=== PATIENT | female | born 1980 | race Caucasian/White ===

== ENCOUNTER 2017-01-20 16:45 | Inpatient (IN) | payer OTHER ==
--- NOTE | 2017-01-20 18:18 | ED CLINICAL REPORT ---
Clinical Report - Physicians/Mid Levels [facility] [address] [place] [address] 01/20/2017 16:47 Patient: KELLEY ERICKSON Time Seen: 16:52; upon arrival, initial patient contact, initial documentation, patient care assumed. Arrived- By private vehicle. Historian- patient. HISTORY OF PRESENT ILLNESS Chief Complaint: VAGINAL BLEEDING. This started about 9 days ago and still present. The symptoms are described as severe. Modifying factors. Not worsened by anything. Not relieved by anything. The patient has had intermittent, crampy pelvic pain, described as "pain", with vaginal bleeding. She has had abnormal bleeding described as heavier than normal period and passing clots. No abdominal pain, vaginal pain, low back pain, flank pain or vaginal discharge. No pain with urination, urinary frequency, urgency of urination or hematuria. In the past she has had irregular periods. They have been of normal duration and more frequent than normal and consisted of normal flow. Not sexually active. ([id number] had period about a month ago, and since then on and off bleeding, and this time it is still going). Denies current . Similar symptoms previously: Occasionally, milder. Recent medical care: Not recently seen/assessed. REVIEW OF SYSTEMS The patient has had nausea. She has had vomiting (none today after taking zofran). No diarrhea, fever, difficulty breathing or chest pain. All systems otherwise negative, except as recorded above. PAST HISTORY See nurses notes. ( PROBLEMS: Threatened . --16:54 Claudette Desai, R.N. ADDITIONAL SURGERIES: . --16:54 Claudette Desai, R.N.). SOCIAL HISTORY Never smoker. No alcohol use or drug use. No recent travel. Is a local resident. FAMILY HISTORY Negative. ADDITIONAL NOTES The nursing notes have been reviewed with agreement regarding the chief complaint, HPI, ROS, PMH and patient medications and allergies. PHYSICAL EXAM Vital Signs: 01/20/2017 16:53 BP: 114/66. HR: 110. RR: 18. O2 saturation: 100%. Temp: 98.6 F. Pain level now: 6/10. Have been reviewed as abnormal. Blood pressure normal. Tachycardic. Respiratory rate normal. Temperature normal. Oxygen saturation normal. Appearance: Alert. Oriented X3. No acute distress. HEENT: Normal external inspection. ENT: Pharynx normal. Neck: Neck supple. CVS: Tachycardia (ventricular rate = 112). Heart sounds abnormal. Respiratory: No respiratory distress. Breath sounds normal. Chest nontender. Abdomen: Soft and nontender. Bowel sounds normal. No organomegaly. No mass. Back: Normal external inspection. : External inspection normal. Speculum exam abnormal. Slight vaginal bleeding, consisting of bright red blood, via the cervical os. No vaginal bleeding from a cervical lesion or vaginal laceration. No vaginal discharge. Cervical os closed. No tissue present. No cervicitis. No herpes-like lesions. Bimanual exam normal. Skin: Skin warm and dry. Slight pallor. Abnormal skin color. No rash. Normal skin turgor. Extremities: Extremities nontender. No lower extremity edema. Neuro: Oriented X 3. Mood/affect normal. No motor deficit. No sensory deficit. LABS, X-RAYS, AND EKG Pelvic Sonogram: Normal study. . verbal report from [facility]. Interpretation time: 18:12. Laboratory Tests: Serum Qualitative: (DELIA: 01/20/2017 17:50) ( [employer] 01/20/2017 18:07) Final results Test Result Flag Units (Reference) , SERUM NEGATIVE CBC w Diff: (DELIA: 01/20/2017 17:50) ( [employer] 01/20/2017 18:04) Final results Test Result Flag Units (Reference) WHITE BLOOD COUNT 5.0 K/uL (4.5-11.5) RED BLOOD COUNT 1.98 L M/uL (4.00-5.20) HEMOGLOBIN 4.1 *L gm/dL (12.0-16.0) CRITICAL RESULTS CALLEDCalled to GLEN 01/20/17 1803Were 2 patient identifiers used? YWas the result read back? Y HEMATOCRIT 14.1 *L % (36.0-46.0) CRITICAL RESULTS CALLEDCalled to GLEN 01/20/17 1803Were 2 patient identifiers used? YWas the result read back? Y MEAN CELL VOLUME 71 L fL (80-100) MEAN CORPUSCULAR HGB 21 L pg (26-34) MEAN CORPUSCULAR HGB CONC 29 L g/dL (31-37) RED CELL DISTRIBUTION WIDTH 31.1 H % (11.6-14.8) PLATELET COUNT 64 L K/uL (150-400) NEUTROPHIL % 64.7 % (50-75) LYMPH % 25.7 % (25-40) MONO % 7.4 % (3-14) EOSINOPHIL % 0.7 % (0-4) BASOPHIL % 1.5 % (0-2) CMP: (DELIA: 01/20/2017 17:50) ( MsgRcvd 01/20/2017 18:18) Final results Test Result Flag Units (Reference) GLUCOSE 125 H mg/dL (70-110) BUN 9 mg/dL (7-18) CREATININE 0.5 L mg/dL (0.6-1.3) Estimated GFR >60 mL/min Estimated GFR- >60 mL/min Note: Persistent reduction over 3 months in eGFR<60 mL/min/1.73 m2 defines CKD. Patients with eGFR values>=60 mL/min/1.73 m2 may also have CKD if evidence ofpersistent proteinuria. Additional information may be foundat www.kidney.org. SODIUM 143 mmol/L (136-145) POTASSIUM 3.9 mmol/L (3.5-5.1) CHLORIDE 108 H mmol/L (98-107) CARBON DIOXIDE 26 mmol/L (21-32) CALCIUM 8.1 L mg/dL (8.5-10.1) TOTAL PROTEIN 6.3 L g/dL (6.4-8.2) ALBUMIN 2.9 L g/dL (3.3-5.0) BILIRUBIN, TOTAL 0.6 mg/dL (0.0-1.0) ALKALINE PHOSPHATASE 96 U/L (46-116) AST (SGOT) 119 H U/L (15-37) ALT (SGPT) 880 H U/L (12-78) Type & Cross: (DELIA: 01/20/2017 17:50) ( MsgRcvd 01/20/2017 19:02) IP Test Result Flag Units (Reference) LEUKOREDUCED PACKED CELLS [id number] BP PC XM COMPATIBLE [id number] BP PC XM COMPATIBLE PATIENT BLOOD TYPE B Positive ANTIBODY SCREEN NEGATIVE . PROGRESS AND PROCEDURES Course of Care: 19:05 01/20/17. Dr Alfaro to bedside. Discussed case with on-call health care provider, (call returned 18:18 Dr Alfaro). Reviewed test results. Agreed upon treatment plan and decision to admit. Health care provider will see patient in ED. Patient counseled in person regarding the patient's stable condition, test results, diagnosis and need for additional testing and admission. 18:12. Differential Diagnosis: I considered vaginitis, endometriosis, uterine fibroids, uterine hyperplasia, uterine cancer, intrauterine , incomplete , threatened , retained products of , endometritis and dysfunctional uterine bleeding as a possible cause of vaginal bleeding in this patient. This is a partial list of diagnoses considered. Above considerations are based on history, physical exam and laboratory data. Differential diagnosis was discussed with patient. Disposition: Condition: good and stable. CLINICAL IMPRESSION Severe dysfunctional uterine bleeding. (Electronically signed by Elvi Poe A.R.N.P. 01/20/2017 22:40)
--- NOTE | 2017-01-20 18:18 | ED CLINICAL REPORT ---
Clinical Report - Physicians/Mid Levels [facility] [address] [place] [address] 01/20/2017 16:47 Patient: KELLEY ERICKSON Time Seen: 16:52; upon arrival, initial patient contact, initial documentation, patient care assumed. Arrived- By private vehicle. Historian- patient. HISTORY OF PRESENT ILLNESS Chief Complaint: VAGINAL BLEEDING. This started about 9 days ago and still present. The symptoms are described as severe. Modifying factors. Not worsened by anything. Not relieved by anything. The patient has had intermittent, crampy pelvic pain, described as "pain", with vaginal bleeding. She has had abnormal bleeding described as heavier than normal period and passing clots. No abdominal pain, vaginal pain, low back pain, flank pain or vaginal discharge. No pain with urination, urinary frequency, urgency of urination or hematuria. In the past she has had irregular periods. They have been of normal duration and more frequent than normal and consisted of normal flow. Not sexually active. ([id number] had period about a month ago, and since then on and off bleeding, and this time it is still going). Denies current . Similar symptoms previously: Occasionally, milder. Recent medical care: Not recently seen/assessed. REVIEW OF SYSTEMS The patient has had nausea. She has had vomiting (none today after taking zofran). No diarrhea, fever, difficulty breathing or chest pain. All systems otherwise negative, except as recorded above. PAST HISTORY See nurses notes. ( PROBLEMS: Threatened . --16:54 Claudette Desai, R.N. ADDITIONAL SURGERIES: . --16:54 Claudette Desai, R.N.). SOCIAL HISTORY Never smoker. No alcohol use or drug use. No recent travel. Is a local resident. FAMILY HISTORY Negative. ADDITIONAL NOTES The nursing notes have been reviewed with agreement regarding the chief complaint, HPI, ROS, PMH and patient medications and allergies. PHYSICAL EXAM Vital Signs: 01/20/2017 16:53 BP: 114/66. HR: 110. RR: 18. O2 saturation: 100%. Temp: 98.6 F. Pain level now: 6/10. Have been reviewed as abnormal. Blood pressure normal. Tachycardic. Respiratory rate normal. Temperature normal. Oxygen saturation normal. Appearance: Alert. Oriented X3. No acute distress. HEENT: Normal external inspection. ENT: Pharynx normal. Neck: Neck supple. CVS: Tachycardia (ventricular rate = 112). Heart sounds abnormal. Respiratory: No respiratory distress. Breath sounds normal. Chest nontender. Abdomen: Soft and nontender. Bowel sounds normal. No organomegaly. No mass. Back: Normal external inspection. : External inspection normal. Speculum exam abnormal. Slight vaginal bleeding, consisting of bright red blood, via the cervical os. No vaginal bleeding from a cervical lesion or vaginal laceration. No vaginal discharge. Cervical os closed. No tissue present. No cervicitis. No herpes-like lesions. Bimanual exam normal. Skin: Skin warm and dry. Slight pallor. Abnormal skin color. No rash. Normal skin turgor. Extremities: Extremities nontender. No lower extremity edema. Neuro: Oriented X 3. Mood/affect normal. No motor deficit. No sensory deficit. LABS, X-RAYS, AND EKG Pelvic Sonogram: Normal study. . verbal report from [facility]. Interpretation time: 18:12. Laboratory Tests: Serum Qualitative: (DELIA: 01/20/2017 17:50) ( [employer] 01/20/2017 18:07) Final results Test Result Flag Units (Reference) , SERUM NEGATIVE CBC w Diff: (DELIA: 01/20/2017 17:50) ( [employer] 01/20/2017 18:04) Final results Test Result Flag Units (Reference) WHITE BLOOD COUNT 5.0 K/uL (4.5-11.5) RED BLOOD COUNT 1.98 L M/uL (4.00-5.20) HEMOGLOBIN 4.1 *L gm/dL (12.0-16.0) CRITICAL RESULTS CALLEDCalled to GLEN 01/20/17 1803Were 2 patient identifiers used? YWas the result read back? Y HEMATOCRIT 14.1 *L % (36.0-46.0) CRITICAL RESULTS CALLEDCalled to GLEN 01/20/17 1803Were 2 patient identifiers used? YWas the result read back? Y MEAN CELL VOLUME 71 L fL (80-100) MEAN CORPUSCULAR HGB 21 L pg (26-34) MEAN CORPUSCULAR HGB CONC 29 L g/dL (31-37) RED CELL DISTRIBUTION WIDTH 31.1 H % (11.6-14.8) PLATELET COUNT 64 L K/uL (150-400) NEUTROPHIL % 64.7 % (50-75) LYMPH % 25.7 % (25-40) MONO % 7.4 % (3-14) EOSINOPHIL % 0.7 % (0-4) BASOPHIL % 1.5 % (0-2) CMP: (DELIA: 01/20/2017 17:50) ( MsgRcvd 01/20/2017 18:18) Final results Test Result Flag Units (Reference) GLUCOSE 125 H mg/dL (70-110) BUN 9 mg/dL (7-18) CREATININE 0.5 L mg/dL (0.6-1.3) Estimated GFR >60 mL/min Estimated GFR- >60 mL/min Note: Persistent reduction over 3 months in eGFR<60 mL/min/1.73 m2 defines CKD. Patients with eGFR values>=60 mL/min/1.73 m2 may also have CKD if evidence ofpersistent proteinuria. Additional information may be foundat www.kidney.org. SODIUM 143 mmol/L (136-145) POTASSIUM 3.9 mmol/L (3.5-5.1) CHLORIDE 108 H mmol/L (98-107) CARBON DIOXIDE 26 mmol/L (21-32) CALCIUM 8.1 L mg/dL (8.5-10.1) TOTAL PROTEIN 6.3 L g/dL (6.4-8.2) ALBUMIN 2.9 L g/dL (3.3-5.0) BILIRUBIN, TOTAL 0.6 mg/dL (0.0-1.0) ALKALINE PHOSPHATASE 96 U/L (46-116) AST (SGOT) 119 H U/L (15-37) ALT (SGPT) 880 H U/L (12-78) Type & Cross: (DELIA: 01/20/2017 17:50) ( MsgRcvd 01/20/2017 19:02) IP Test Result Flag Units (Reference) LEUKOREDUCED PACKED CELLS [id number] BP PC XM COMPATIBLE [id number] BP PC XM COMPATIBLE PATIENT BLOOD TYPE B Positive ANTIBODY SCREEN NEGATIVE . PROGRESS AND PROCEDURES Course of Care: 19:05 01/20/17. Dr Alfaro to bedside. Discussed case with on-call health care provider, (call returned 18:18 Dr Alfaro). Reviewed test results. Agreed upon treatment plan and decision to admit. Health care provider will see patient in ED. Patient counseled in person regarding the patient's stable condition, test results, diagnosis and need for additional testing and admission. 18:12. Differential Diagnosis: I considered vaginitis, endometriosis, uterine fibroids, uterine hyperplasia, uterine cancer, intrauterine , incomplete , threatened , retained products of , endometritis and dysfunctional uterine bleeding as a possible cause of vaginal bleeding in this patient. This is a partial list of diagnoses considered. Above considerations are based on history, physical exam and laboratory data. Differential diagnosis was discussed with patient. Disposition: Condition: good and stable. CLINICAL IMPRESSION Severe dysfunctional uterine bleeding. (Electronically signed by Elvi Poe A.R.N.P. 01/20/2017 22:40)
--- NOTE | 2017-01-20 18:18 | ED ORDER SUMMARY ---
..... Patient: KELLEY ERICKSON OrderSheet [facility] VisitID: [id number] [place] [address] 36y, F Registration Date/Time: 01/20/2017 ORDER SHEET Weight: 83.9 kg (stated) Allergies: No Known Drug Allergy GENERAL ORDERS: Vitals - Orthostatic (17:01/20/2017 HBivens A.R.N.P.) (Ack 17:35 LNations ER Tech1) (19:08 SRoberts R.N.) CBC w Diff Urgent (17:01/20/2017 HBivens A.R.N.P.) (Ack 17:35 LNations ER Tech1) (19:08 SRoberts R.N.) CMP Urgent (17:01/20/2017 HBivens A.R.N.P.) (Ack 17:35 LNations ER Tech1) (19:08 SRoberts R.N.) UA-Culture if indicated Urgent (17:01/20/2017 HBivens A.R.N.P.) (Ack 17:35 LNations ER Tech1) (Cancelled: Unable to Vtozxmk14:34 SRoberts R.N.) Serum Qualitative Urgent (17:25 01/20/2017 HBivens A.R.N.P.) (Ack 17:35 LNations ER Tech1) (19:08 SRoberts R.N.) Pelvic Exam Setup (17:25 01/20/2017 HBivens A.R.N.P.) (Ack 17:35 LNations ER Tech1) (19:08 SRoberts R.N.) US Pelvic Complete w Transvag Urgent (17:39 01/20/2017 HBivens A.R.N.P.) (Ack 17:55 LNations ER Tech1) (19:08 SRoberts R.N.) Type & Cross (vag bleed) (low h&h) Urgent (18:09 01/20/2017 HBivens A.R.N.P.) (Ack 18:18 ALFONZOoejanny) (19:08 SRoberts R.N.) MEDICATION ORDERS: - (premarin 25mg iv stat please) (18:22 01/20/2017 HBivens A.R.N.P.) (Ack 18:33 Pat Balderas) (19:13 Roland Velazquez.NBartolo) IV FLUIDS: IV NS : initial bolus 1000 mL (1000 mL/hr), then none - (NOW) (17:25 01/20/2017 HBivens A.R.N.P.) (Ack 18:32 Pat Balderas) (19:09 Roland DillonNBartolo) IV Saline Lock (17:01/20/2017 HBivens A.R.N.P.) (Ack 18:33 Pat Balderas) (19:08 Roland Velazquez.N.) ORDER SHEET NOTES: [Electronically signed by Payton Ch R.N. (21:38 01/20/2017)] [Electronically signed by Elvi PoeNBartoloPBartolo (22:40 01/20/2017)] [Electronically locked/signed by Payton Ch R.N. (21:38 01/20/2017)]
--- NOTE | 2017-01-20 18:18 | ED ORDER SUMMARY ---
..... Patient: KELLEY ERICKSON OrderSheet [facility] VisitID: [id number] [place] [address] 36y, F Registration Date/Time: 01/20/2017 ORDER SHEET Weight: 83.9 kg (stated) Allergies: No Known Drug Allergy GENERAL ORDERS: Vitals - Orthostatic (17:01/20/2017 HBivens A.R.N.P.) (Ack 17:35 LNations ER Tech1) (19:08 SRoberts R.N.) CBC w Diff Urgent (17:01/20/2017 HBivens A.R.N.P.) (Ack 17:35 LNations ER Tech1) (19:08 SRoberts R.N.) CMP Urgent (17:01/20/2017 HBivens A.R.N.P.) (Ack 17:35 LNations ER Tech1) (19:08 SRoberts R.N.) UA-Culture if indicated Urgent (17:01/20/2017 HBivens A.R.N.P.) (Ack 17:35 LNations ER Tech1) (Cancelled: Unable to Dpoatzq09:34 SRoberts R.N.) Serum Qualitative Urgent (17:25 01/20/2017 HBivens A.R.N.P.) (Ack 17:35 LNations ER Tech1) (19:08 SRoberts R.N.) Pelvic Exam Setup (17:25 01/20/2017 HBivens A.R.N.P.) (Ack 17:35 LNations ER Tech1) (19:08 SRoberts R.N.) US Pelvic Complete w Transvag Urgent (17:39 01/20/2017 HBivens A.R.N.P.) (Ack 17:55 LNations ER Tech1) (19:08 SRoberts R.N.) Type & Cross (vag bleed) (low h&h) Urgent (18:09 01/20/2017 HBivens A.R.N.P.) (Ack 18:18 ALFONZOoejanny) (19:08 SRoberts R.N.) MEDICATION ORDERS: - (premarin 25mg iv stat please) (18:22 01/20/2017 HBivens A.R.N.P.) (Ack 18:33 Pat Balderas) (19:13 Roland Velazquez.NBartolo) IV FLUIDS: IV NS : initial bolus 1000 mL (1000 mL/hr), then none - (NOW) (17:25 01/20/2017 HBivens A.R.N.P.) (Ack 18:32 Pat Balderas) (19:09 Roland DillonNBartolo) IV Saline Lock (17:01/20/2017 HBivens A.R.N.P.) (Ack 18:33 Pat Balderas) (19:08 Roland Velazquez.N.) ORDER SHEET NOTES: [Electronically signed by Payton Ch R.N. (21:38 01/20/2017)] [Electronically signed by Elvi PoeNBartoloPBartolo (22:40 01/20/2017)] [Electronically locked/signed by Payton Ch R.N. (21:38 01/20/2017)]
--- NOTE | 2017-01-20 18:18 | ED NURSING NOTES ---
Clinical Report - Nurses [facility] [address] [place] [address] 01/20/2017 16:47 [id number] TRI[facility] Triage time 16:53. Acuity: LEVEL 3. Chief Complaint: VAGINAL BLEED. Alert. No acute distress. [place] COMA SCORE: [place] Coma Scale: 15- eyes open spontaneously (4); best verbal response- oriented x 4 (5); best motor response- obeys commands (6). --16:58 Claudette Desai R.N. 16:53 01/20/17. BP: 114/66. HR: 110. RR: 18. O2 saturation: 100% on room air. Temp: 98.6 F (oral). Pain level now: 05/01. --16:58 Claudette Desai R.N. Weight: 83.9 kg stated. Height/Length: 65 inches Per Patient. BMI: 30.8. --16:54 Claudette Desai R.N. Medications None. --16:54 Claudette Desai R.N. Medication/allergy information source: the patient. --16:58 Claudette Desai R.N. Allergies No Known Drug Allergy. --16:54 Claudette Desai R.N. History Arrived by private vehicle. Historian: patient. Accompanied by family. Primary physician ([facility]). Onset. (about 9 days). PAST MEDICAL HX: Last normal menstrual period- Dec 2016. SOCIAL HX: Smoker- current status unknown (no). No alcohol use or drug use. FALL RISK ASSESSMENT: Fall risk assessment completed. No fall risk identified. FUNCTIONAL ASSESSMENT: Functional assessment: no impairments noted. LEARNING NEEDS ASSESSMENT: The learning needs assessment revealed no barriers. --16:58 Claudette Desai R.N. PROBLEMS: Threatened . --16:54 Claudette Desai R.N. ADDITIONAL SURGERIES: . --16:54 Claudette Desai R.N. Assessment GENERAL / NEURO / PSYCH: Alert. Oriented X 4. Appears in no acute distress. Patient appears calm and cooperative. RESPIRATORY: Respirations not labored. SKIN: Skin is warm and dry. --16:58 Claudette Desai R.N. Interventions ID band on patient. To treatment room. --16:58 Claudette Desai R.N. PHYSICAL ASSESSMENT 17:00 01/20/17. Ambulatory to room. Patient gowned. GENERAL / NEURO / PSYCH: Alert. Oriented X 4. Appears in no acute distress. RESPIRATORY: Respirations not labored. SKIN: Skin is pale. Skin is warm and dry. --17:00 Claudette Desai R.N. NURSING PROGRESS NOTES 17:00 01/20/17. Patient gowned. Head of bed elevated. Call light placed in reach. Side rails up x 1. Bed placed in lowest position. Brakes of bed on. --17:00 Claudette Desai R.N. 17:00 01/20/17. Patient ready for evaluation. --17:00 Claudette Desai R.N. Care transferred and report received (Mary, RN). --17:20 Payton Ch R.N. ( OB cart setup in the room.). --17:20 Payton Ch R.N. 17:30. PELVIC EXAM: Pelvic exam performed by INTERMEDIATE ACCOUNTANT. Assisted by one nurse. Preparation: pelvic tray; patient placed in lithotomy position. Procedure: speculum exam. Thin vaginal discharge noted. Bright red vaginal bleeding noted. Status post-procedure: she was stable. Total time of assist / procedure: 15 minutes. --19:05 Payton Ch R.N. 18:07 01/20/2017 Site #1 started via IV in the right antecubital space with an 20g angiocath, with aseptic technique and good blood return; one attempt. Blood drawn: rainbow set. Labeled in the presence of the patient and sent to the lab. Saline lock flushed with 10 mL saline (blood banded.). --19:07 Payton Ch R.N. 18:54 01/20/2017 Started bag #1 1000 mL IV Fluids IV NS (Saline); at 1000 mL/hr over 1 hour(s) via site #1 via IV pump. Allergies verified and confirmed 5 rights. IV patency established. IV site checked: no pain, redness, or swelling. IV flushed thoroughly pre- and post-medication administration. --19:09 Payton Ch R.N. 19:12 01/20/2017 premarin * IVP 25mg --19:13 Payton Ch R.N. 19:34 01/20/17. BP: 106/59 taken while standing. HR: 110. 19:32 01/20/17. BP: 105/57 taken while sitting. HR: 105. RR: 20. O2 saturation: 98% on room air. 19:26 01/20/17. BP: 110/60 taken while lying. HR: 100. RR: 18. O2 saturation: 100% on room air. --19:52 Payton Ch R.N. 20:04 01/20/2017 IV Fluids IV NS Discontinued: bag #1 infused. Total amount infused: 1000 mL. IV patency established. IV site checked: no pain, redness, or swelling. IV flushed thoroughly. --20:04 Payton Ch R.N. 20:20 01/20/2017 Site #[address] upon admission; patent, no pain and no signs of infection or infiltration. Flushed; flushes easily. --21:33 Payton Ch R.N. DISPOSITION / DISCHARGE Disposition: observation in Acute Care. Transported via stretcher by [employer]. Report was given to a nurse in person. Report included patient's care, treatment, medications, reviewed medication reconcilliation, and condition (including any recent changes or anticipated changes). All questions were answered. Report was acknowledged and care was transferred. (Bridgette, RN). Patient's personal items include: shirt, pants, undergarments and shoes; items were placed in belongings bag and transported with the patient. Collection of belongings was witnessed by 1 nurse. --20:07 Payton Ch R.N. 19:34 01/20/17. BP: 107/65. HR: 100. RR: 18. O2 saturation: 100% on room air. 19:34 01/20/17. BP: 106/59 taken while standing. HR: 110. 19:32 01/20/17. BP: 105/57 taken while sitting. HR: 105. RR: 20. O2 saturation: 98% on room air. 19:26 01/20/17. BP: 110/60 taken while lying. HR: 100. RR: 18. O2 saturation: 100% on room air. 18:15 01/20/17. BP: 106/55. HR: 103. RR: 18. O2 saturation: 99% on room air. 16:53 01/20/17. BP: 114/66. HR: 110. RR: 18. O2 saturation: 100% on room air. Temp: 98.6 F (oral). Pain level now: 05/01. --20:07 Payton Ch R.N. Departure time: 2019. --21:32 Payton Ch R.N. Locked/Released at 01/20/2017 21:38 by Payton Ch R.N.
--- NOTE | 2017-01-20 18:18 | ED NURSING NOTES ---
Clinical Report - Nurses [facility] [address] [place] [address] 01/20/2017 16:47 [id number] Triage time 16:53. Acuity: LEVEL 3. Chief Complaint: VAGINAL BLEED. Alert. No acute distress. CAM[place] COMA SCORE: [place] Coma Scale: 15- eyes open spontaneously (4); best verbal response- oriented x 4 (5); best motor response- obeys commands (6). --16:58 Claudette Desai R.N. 16:53 01/20/17. BP: 114/66. HR: 110. RR: 18. O2 saturation: 100% on room air. Temp: 98.6 F (oral). Pain level now: 05/01. --16:58 Claudette Desai R.N. Weight: 83.9 kg stated. Height/Length: 65 inches Per Patient. BMI: 30.8. --16:54 Claudette Desai R.N. Medications None. --16:54 Claudette Desai R.N. Medication/allergy information source: the patient. --16:58 Claudette Desai R.N. Allergies No Known Drug Allergy. --16:54 Claudette Desai R.N. History Arrived by private vehicle. Historian: patient. Accompanied by family. Primary physician ([facility]). Onset. (about 9 days). PAST MEDICAL HX: Last normal menstrual period- Dec 2016. SOCIAL HX: Smoker- current status unknown (no). No alcohol use or drug use. FALL RISK ASSESSMENT: Fall risk assessment completed. No fall risk identified. FUNCTIONAL ASSESSMENT: Functional assessment: no impairments noted. LEARNING NEEDS ASSESSMENT: The learning needs assessment revealed no barriers. --16:58 Claudette Desai R.N. PROBLEMS: Threatened . --16:54 Claudette Desai R.N. ADDITIONAL SURGERIES: . --16:54 Claudette Desai R.N. Assessment GENERAL / NEURO / PSYCH: Alert. Oriented X 4. Appears in no acute distress. Patient appears calm and cooperative. RESPIRATORY: Respirations not labored. SKIN: Skin is warm and dry. --16:58 Claudette Desai R.N. Interventions ID band on patient. To treatment room. --16:58 Claudette Desai R.N. PHYSICAL ASSESSMENT 17:00 01/20/17. Ambulatory to room. Patient gowned. GENERAL / NEURO / PSYCH: Alert. Oriented X 4. Appears in no acute distress. RESPIRATORY: Respirations not labored. SKIN: Skin is pale. Skin is warm and dry. --17:00 Claudette Desai R.N. NURSING PROGRESS NOTES 17:00 01/20/17. Patient gowned. Head of bed elevated. Call light placed in reach. Side rails up x 1. Bed placed in lowest position. Brakes of bed on. --17:00 Claudette Desai R.N. 17:00 01/20/17. Patient ready for evaluation. --17:00 Claudette Desai R.N. Care transferred and report received (Mary, RN). --17:20 Payton Ch R.N. ( OB cart setup in the room.). --17:20 Payton Ch R.N. 17:30. PELVIC EXAM: Pelvic exam performed by MEDICAL RESEARCH ASSOCIATE. Assisted by one nurse. Preparation: pelvic tray; patient placed in lithotomy position. Procedure: speculum exam. Thin vaginal discharge noted. Bright red vaginal bleeding noted. Status post-procedure: she was stable. Total time of assist / procedure: 15 minutes. --19:05 Payton Ch R.N. 18:07 01/20/2017 Site #1 started via IV in the right antecubital space with an 20g angiocath, with aseptic technique and good blood return; one attempt. Blood drawn: rainbow set. Labeled in the presence of the patient and sent to the lab. Saline lock flushed with 10 mL saline (blood banded.). --19:07 Payton Ch R.N. 18:54 01/20/2017 Started bag #1 1000 mL IV Fluids IV NS (Saline); at 1000 mL/hr over 1 hour(s) via site #1 via IV pump. Allergies verified and confirmed 5 rights. IV patency established. IV site checked: no pain, redness, or swelling. IV flushed thoroughly pre- and post-medication administration. --19:09 Payton Ch R.N. 19:12 01/20/2017 premarin * IVP 25mg --19:13 Payton Ch R.N. 19:34 01/20/17. BP: 106/59 taken while standing. HR: 110. 19:32 01/20/17. BP: 105/57 taken while sitting. HR: 105. RR: 20. O2 saturation: 98% on room air. 19:26 01/20/17. BP: 110/60 taken while lying. HR: 100. RR: 18. O2 saturation: 100% on room air. --19:52 Payton Ch R.N. 20:04 01/20/2017 IV Fluids IV NS Discontinued: bag #1 infused. Total amount infused: 1000 mL. IV patency established. IV site checked: no pain, redness, or swelling. IV flushed thoroughly. --20:04 Payton Ch R.N. 20:20 01/20/2017 Site #[address] upon admission; patent, no pain and no signs of infection or infiltration. Flushed; flushes easily. --21:33 Payton Ch R.N. DISPOSITION / DISCHARGE Disposition: observation in Acute Care. Transported via stretcher by [facility] [employer]. Report was given to a nurse in person. Report included patient's care, treatment, medications, reviewed medication reconcilliation, and condition (including any recent changes or anticipated changes). All questions were answered. Report was acknowledged and care was transferred. (Bridgette, RN). Patient's personal items include: shirt, pants, undergarments and shoes; items were placed in belongings bag and transported with the patient. Collection of belongings was witnessed by 1 nurse. --20:07 Payton Ch R.N. 19:34 01/20/17. BP: 107/65. HR: 100. RR: 18. O2 saturation: 100% on room air. 19:34 01/20/17. BP: 106/59 taken while standing. HR: 110. 19:32 01/20/17. BP: 105/57 taken while sitting. HR: 105. RR: 20. O2 saturation: 98% on room air. 19:26 01/20/17. BP: 110/60 taken while lying. HR: 100. RR: 18. O2 saturation: 100% on room air. 18:15 01/20/17. BP: 106/55. HR: 103. RR: 18. O2 saturation: 99% on room air. 16:53 01/20/17. BP: 114/66. HR: 110. RR: 18. O2 saturation: 100% on room air. Temp: 98.6 F (oral). Pain level now: 05/01. --20:07 Payton Ch R.N. Departure time: 2019. --21:32 Payton Ch R.N. Locked/Released at 01/20/2017 21:38 by Payton Ch R.N.
[2017-01-20 20:47] VITALS: BP 106/63
--- NOTE | 2017-01-20 22:03 | DIAGNOSTIC IMAGING REPORT ---
PROCEDURE: US COMPLETE PELVIC W/TRANSVAG INDICATION: ABNORMAL BLEEDING TECHNIQUE: Transabdominal and endovaginal oneill scale and color Doppler sonographic images of the female pelvis were obtained. COMPARISON: None. FINDINGS: TRANSABDOMINAL SCANS: Retroverted uterus measures about 10.2 cm in length. Normal contour and echotexture. Normal adnexa without suspicious mass. The visible portion of the urinary bladder is normal. No significant free pelvic fluid. TRANSVAGINAL SCANS: The uterus is retroverted in position and has a homogeneous myometrial echotexture. No dominant mass. Normal vascularity. The endometrium is about 6 mm in thickness. No endometrial fluid collections or suspicious masses. The right ovary measures 2.7 x 1.3 x 3.0 cm and has a normal follicular echotexture. There is normal arterial and venous ovarian flow present. The left ovary measures 3.5 x 2.0 x 3.2 cm and also has a normal follicular echotexture and normal vascularity. No suspicious adnexal masses. Trace right adnexal fluid. IMPRESSION: 1. Normal pelvic ultrasound.
--- NOTE | 2017-01-20 22:40 | ED DISCHARGE INSTRUCTIONS ---
Patient: KELLEY ERICKSON General Instructions [facility] VisitID: [id number] [address] [place] [address] 36y, F Registration Date/Time: 01/20/2017 Severe dysfunctional uterine bleeding. (Electronically signed by Elvi Poe A.R.N.P. 01/20/2017 22:40)
--- NOTE | 2017-01-20 22:40 | ED DISCHARGE INSTRUCTIONS ---
Patient: KELLEY ERICKSON General Instructions [facility] VisitID: [id number] [address] [place] [address] 36y, F Registration Date/Time: 01/20/2017 Severe dysfunctional uterine bleeding. (Electronically signed by Elvi Poe A.R.N.P. 01/20/2017 22:40)
--- NOTE | 2017-01-20 22:40 | ED MED RECONCILIATION SUMMARY ---
Patient: KELLEY ERICKSON Medication Reconciliation Report [facility] VisitID: [id number] [address] [place] [address] 36y, F Registration Date/Time: 01/20/2017 Weight: 83.9 kg Height/Length: 65 in. BMI: 30.8 ALLERGIES: No Known Drug Allergy The patient's Home Medications are listed below: NONE. The source(s) of the original Home Medication information: patient The following Medications were given to the patient in the Emergency Department: IV NS IV Fluids bolus 0, then 1000 mL/hr, administered: 01/20/2017 6:54:00 PM premarin IVP 25mg, administered: 01/20/2017 7:12:00 PM The following Medications were prescribed to the patient: None.
--- NOTE | 2017-01-20 22:40 | ED MAR SUMMARY ---
..... Medication Administration Record [facility] [address] [place] [address] Patient: KELLEY ERICKSON Visit ID: [id number] 36y, F Weight: 83.9 kg Height/Length: 65 in BMI: 30.8 ALLERGIES: No Known Drug Allergy Start 18:54 01/20/2017 Payton Ch R.N., Stop 20:04 01/20/2017 Payton Ch R.N. Medication Administered: IV NS (SALINE), Dose: IV Fluids over 1 hour(s), Rate: 1000 mL/hr, Dispensed: 1000 mL bag, Site: #1 right AC. Medication Ordered: IV NS : initial bolus 1000 mL (1000 mL/hr), then none - (NOW). Given 19:12 01/20/2017 Payton Ch R.N. Medication Administered: premarin *, Dose: 25mg * IVP. Medication Ordered: - (premarin 25mg iv stat please).
--- NOTE | 2017-01-20 22:40 | ED MED RECONCILIATION SUMMARY ---
Patient: KELLEY ERICKSON Medication Reconciliation Report [facility] VisitID: [id number] [address] [place] [address] 36y, F Registration Date/Time: 01/20/2017 Weight: 83.9 kg Height/Length: 65 in. BMI: 30.8 ALLERGIES: No Known Drug Allergy The patient's Home Medications are listed below: NONE. The source(s) of the original Home Medication information: patient The following Medications were given to the patient in the Emergency Department: IV NS IV Fluids bolus 0, then 1000 mL/hr, administered: 01/20/2017 6:54:00 PM premarin IVP 25mg, administered: 01/20/2017 7:12:00 PM The following Medications were prescribed to the patient: None.
--- NOTE | 2017-01-20 22:40 | ED MAR SUMMARY ---
..... Medication Administration Record [facility] [address] [place] [address] Patient: KELLEY ERICKSON Visit ID: [id number] 36y, F Weight: 83.9 kg Height/Length: 65 in BMI: 30.8 ALLERGIES: No Known Drug Allergy Start 18:54 01/20/2017 Payton Ch R.N., Stop 20:04 01/20/2017 Payton Ch R.N. Medication Administered: IV NS (SALINE), Dose: IV Fluids over 1 hour(s), Rate: 1000 mL/hr, Dispensed: 1000 mL bag, Site: #1 right AC. Medication Ordered: IV NS : initial bolus 1000 mL (1000 mL/hr), then none - (NOW). Given 19:12 01/20/2017 Payton Ch R.N. Medication Administered: premarin *, Dose: 25mg * IVP. Medication Ordered: - (premarin 25mg iv stat please).
[2017-01-20 22:45] VITALS: BP 103/57
[2017-01-20 23:00] VITALS: BP 103/57
[2017-01-20 23:13] VITALS: BP 100/58
[2017-01-20 23:36] VITALS: BP 100/53
[2017-01-20 23:50] VITALS: BP 100/53
[2017-01-21] VITALS (26 sets, daily range): BP systolic 95–121; BP diastolic 46–65
--- NOTE | 2017-01-21 20:41 | HISTORY AND PHYSICAL ---
ADMITTED: 01/20/2017 CHIEF COMPLAINT: 1. Heavy vaginal bleeding with menses HISTORY OF PRESENT ILLNESS: The patient is a 36-year-old 6, para 6, delivered 15 months ago, has had 5-10 day periods, increasing with clots over the last year. The patient has had severe bleeding over the last several days and comes in now with dizziness and has a hemoglobin, hematocrit of 4.1 and 14.1 from the emergency department. MEDICAL/SURGICAL HISTORY: Past medical history: Normal periods, but heavy. Surgical history: section. Medical history not significant. OB history: Six pregnancies, deliveries. MEDICATIONS: 1. None. ALLERGIES: 1. NONE. SOCIAL HISTORY: History of smoking. No alcohol or drug use. FAMILY HISTORY: Noncontributory. REVIEW OF SYSTEMS: General/Neurological/Psychological history: Alert and oriented x3. PHYSICAL EXAMINATION: VITAL SIGNS: Stable. Blood pressure 114/66, pulse 110, 100% saturated on room air O2. Vital signs stable, otherwise. Weight, per patient, 84 kg with a BMI of 31. HEENT: Grossly intact. HEART: Tachycardia at 110. ABDOMEN: Benign. MUSCULOSKELETAL: Normal. EXTREMITIES: Normal. PELVIC: Per emergency department visit, bright red blood per os, clots. LAB/IMAGING: Laboratories: Hematocrit is noted 4, 14 for hemoglobin and hematocrit. Chem-6: Abnormalities noted. SGOT and SGPT are significantly elevated 119 and 888. Other electrolytes essentially normal. IMPRESSION: 1. A 36 year old with severe menorrhagia and tachycardic with a hemoglobin, hematocrit of 4.1/14.1. PLAN: Multiple options given to patient. Overnight we will transfuse. Give Premarin IV q.6-12 hours p.r.n., 2 doses to be given, progesterone p.o. and transfuse to hematocrit of approximately 24, suspect 5 units needed. We will observe her overnight and offer options again in the morning. The following is the plan. This course of plan we have been following.
--- NOTE | 2017-01-21 21:26 | Consultation Report ---
Admission Admit Date 01/20/17 History Chief Complaint heavy periods History of Present Illness Patient is a 36-year-old 6, para 6, delivered 15 months ago, has had 5- 10 day periods, increasing with clots over the last year. The patient has had severe bleeding over the last several days which she claims is relatively normal for after her last . Patient had not seen any medical professional about these heavy periods since they were self limiting. Raynaeve patient has been noticing that she has been haivng very heacy periods after the . Patient regularly sees doctors however it is unclear to as whether she has had been prescribed medication in the past for this or has been officially diagnosed with anything. Patient History 1. Severe anemia 2. Thrombocytopenia Social History Patient currently has 3 children and does not work. She does not drink, use alcohol or illegal drugs Family History Family history was reviewed; no changes noted. Medications and Allergies Medications Home Meds None Current Medications Sig/Patience Start time Last Medication Dose Route Stop Time Status Admin Influenza Virus 0.5 ML 0900 01/22 0900 AC Vaccine IM 01/22 1800 Sodium Chloride 250 ML .[FOR TRANSFUSION] 01/21 2130 AC IV Sodium Chloride 250 ML .[FOR TRANSFUSION] 01/21 2130 AC IV Sodium Chloride 250 ML .TRANSFUSION 01/21 1400 AC IV Estrogens Conjugated 25 MG Q6H PRN 01/21 0815 AC 01/21 IV 1234 Ondansetron HCl 4 MG Q4H PRN 01/20 1900 AC IV Sodium Chloride 1,000 ML ASDIRECTED 01/20 1900 AC 01/20 IV 2120 Allergies Coded Allergies: No Known Drug Allergy (07/08/16) Review of Systems Constitutional Weakness, Malaise. Denies: Fever, Chills, Sweats, Other. Eyes Denies: Pain, Vision Change, Conjunctival Inflammation, Eyelid Inflammation, Redness, Other. ENT Denies: Ear Pain, Ear Discharge, Nose Pain, Nasal Discharge, Nasal Congestion, Mouth Pain, Mouth Swelling, Throat Pain, Throat Swelling, Other. Respiratory Denies: Cough, Dry, SOB w/exertion, Wheezing, Hemoptysis, Pleuritic Pain, Sputum , Other. Cardiovascular Denies: Chest Pain, Palpitations, Orthopnea, PND, Edema, Light-headedness, Other. Gastrointestinal Denies: Nausea, Vomiting, Abdominal Pain, Diarrhea, Constipation, Melena, Hematochezia, Other. Genitourinary Other (heavy periods ). Denies: Dysuria, Frequency, Incontinence, Hematuria, Retention. Musculoskeletal Denies: Neck Pain, Shoulder Pain, Arm Pain, Back Pain, Hand Pain, Leg Pain, Foot Pain, Other. Skin Denies: Rash, Lesions, Jaundice, Bruising, Other. Neurological Denies: Weakness, Numbness, Incoordination, Change in speech, Confusion, Seizures, Other. Physical Exam Vital Signs / I&Os Vital Signs Date Time Temp Pulse Resp B/P Pulse O2 O2 Flow FiO2 Ox Delivery Rate 01/22 0501 98.4 79 14 101/55 98 Room Air 03/03 0313 98.4 86 16 102/54 97 Room Air 03/ 0240 98.2 88 14 102/56 98 Room Air 03/ 0140 98.2 86 16 99/59 96 Room Air 03/03 0112 98.2 86 16 99/59 96 03/03 0009 98.2 74 16 98/59 99 03/02 2253 98.2 89 16 101/59 98 03/02 1950 Room Air 03/02 1939 98.4 95 18 112/63 98 Room Air 03/02 1900 98.4 97 19 110/58 96 03/02 1800 98.2 99 20 111/57 98 03/02 1700 98.1 94 20 105/57 96 03/02 1644 98.1 92 18 100/61 95 03/02 1607 0.0 03/02 1435 98.4 89 18 105/61 96 Room Air 03/02 1158 99.1 92 18 113/55 92 03/02 1048 98.8 91 20 112/65 96 03/02 0937 95 20 107/61 94 03/02 0922 99.0 91 20 110/54 93 03/02 0807 Room Air 03/02 0750 99.1 89 20 107/58 97 I&O 03/02 0800 03/02 1600 03/03 0000 Intake Total 1905 1060 1270 Output Total 250 850 550 Balance 1655 210 720 General Appearance Alert, Oriented X3, No acute distress HEENT PERRLA, Moist mucous membranes Lungs Clear to auscultation, Normal air movement Neck Supple, No JVD, No thyromegaly Cardiovascular Regular rate and rhythm, Normal S1 and S2, No murmurs, gallops, rubs Abdomen Normal bowel sounds, Soft, No tenderness Extremities No edema, Normal pulses, No tenderness Skin No Breakdown, No Significant Lesions LAB Results Laboratory Tests 01/21 01/21 01/21 01/21 1205 2019 2020 2020 Chemistry Iron (35 - 150 ug/dL) 178 TIBC (260 - 445 ug/dL) 427 Iron Saturation (15 - 50 %) 42 Vitamin B12 (211 - 946 pg/mL) 1454 Folate (>3.0 ng/mL) 4.5 Coagulation INR (0.8 - 1.2) 1.1 APTT (24 - 34 SECONDS) Cancelled 34 Hematology WBC (4.5 - 11.5 K/uL) 9.2 RBC (4.00 - 5.20 M/uL) 2.91 Hgb (12.0 - 16.0 gm/dL) 6.5 7.1 Hct (36.0 - 46.0 %) 20.9 22.2 MCV (80 - 100 fL) 77 MCH (26 - 34 pg) 24 RDW (11.6 - 14.8 %) 24.2 Neut % (Auto) (50 - 75 %) 67.2 Lymph % (Auto) (25 - 40 %) 22.7 [place] % (Auto) (3 - 14 %) 6.8 Eos % (Auto) (0 - 4 %) 2.2 Baso % (Auto) (0 - 2 %) 1.1 Reticulocyte % (Auto) (0.5 - 1.5 %) 1.0 Reticulocyte # (0.02 - 0.08 M/uL) 0.0286 Plt Count, EDTA (150 - 400 K/uL) 33 RBC Morphology (3919 A) 1+ HYPOCHROMASIA PUBS MCHC (31 - 37 g/dL) 32 Serology Hepatitis A IgM Ab Pending Hep Bs Antigen Pending Hep B Core IgM Ab Pending Hepatitis C Antibody Pending 01/22 01/22 0613 0613 Hematology Hgb Pending Hct Pending Plt Count, EDTA Pending Assessment and Plan Problem List 1. Severe anemia Plan - Pt has severe anemia secondary to heavy menstruation - will supplement with blood and control bleeding as best as possible - will recommend obtaining, peripheral smear, iron profile after transfusions are complete, hepatitis profile, - will recommend starting iron supplmentation given she has been iron defiecient before however due to frequent transfusions current values are skewed 2. Thrombocytopenia Plan - pt has evidence of thrombocytopenia with elevated liver enzymes - given picture patient has liver dysfunction which is preventing proper clotting - will obtain hepatitis profile, HIV testing, US of the liver, q12 cbcs - will order 2 units of platelets now - Given patients history it is unlikely to be secondary to sepsis, bactermia, congenital disorder, SEMAJ, or autoimmune disorder - if aforementioned are negative will look into other possibilities
[2017-01-22] VITALS (7 sets, daily range): BP systolic 98–102; BP diastolic 54–59
[2017-01-22] MEDS ORDERED: FERROUS SULFAT325 M1 PO (14:01)
[2017-01-22] MEDS ORDERED: PRENATAL1 TAB PO (14:01)
--- NOTE | 2017-01-22 16:43 | Progress Note ---
Subjective General Note Date: January 22, 2017 Admission Date: January 20, 2017 Hospital Day: 3 PCP: Chelita cotton Status: Inpatient Advanced Directive: FULL CODE Room: 202 Brief History: The patient is a 36-year-old female with a significant past medical history of iron deficiency anemia who presented to [facility] emergency room secondary to weakness. Evaluation at that time was consistent with severe anemia secondary to dysfunctional uterine bleeding. Secondary to the above, the patient was admitted by Yobani Alfaro M.D. for further evaluation and treatment. For other history present illness, past medical history, family history, social history, review of systems, and admission physical examination please see the patient's history and physical examination, medicine consultation, and ER visit note in the patient's medical record. Subjective: The patient states she is doing better today. Weakness improved. Complains of mild peripheral edema. Patient requests: None Medications and Allergies Medications Current Medications Sig/Patience Start time Last Medication Dose Route Stop Time Status Admin Influenza Virus 0.5 ML 0900 01/22 0900 AC 01/22 Vaccine IM 01/22 1800 1330 Sodium Chloride 250 ML .[FOR TRANSFUSION] 01/21 2130 AC IV Sodium Chloride 250 ML .[FOR TRANSFUSION] 01/21 2130 AC IV Sodium Chloride 250 ML .TRANSFUSION 01/21 1400 AC IV Estrogens Conjugated 25 MG Q6H PRN 01/21 0815 AC 01/21 IV 1234 Ondansetron HCl 4 MG Q4H PRN 01/20 1900 AC IV Sodium Chloride 1,000 ML ASDIRECTED 01/20 1900 AC 01/20 IV 2120 Allergies Coded Allergies: No Known Drug Allergy (07/08/16) Physical Exam Vital Signs / I&Os Vital Signs Date Time Temp Pulse Resp B/P Pulse O2 O2 Flow FiO2 Ox Delivery Rate 01/22 1059 99.1 92 18 102/59 96 Room Air 03/ 0501 98.4 79 14 101/55 98 Room Air 03/03 0313 98.4 86 16 102/54 97 Room Air 03/ 0240 98.2 88 14 102/56 98 Room Air 03/ 0140 98.2 86 16 99/59 96 Room Air 03/ 0112 98.2 86 16 99/59 96 / 0009 98.2 74 16 98/59 99 / 2253 98.2 89 16 101/59 98 / 1950 Room Air 01/21 1939 98.4 95 18 112/63 98 Room Air 01/21 1900 98.4 97 19 110/58 96 / 1800 98.2 99 20 111/57 98 / 1700 98.1 94 20 105/57 96 03/ 1644 98.1 92 18 100/61 95 I&O 01/22 0000 01/21 1600 01/21 0800 Intake Total 1270 1060 1905 Output Total 550 850 250 Balance 974 498 9562 General Appearance Alert, Oriented X3, Cooperative, No acute distress Lungs Clear to auscultation, Normal air movement Cardiovascular Regular rate and rhythm, Normal S1 and S2 Abdomen Normal bowel sounds, Soft Extremities No cyanosis, No clubbing, edema unchanged Neurological Grossly normal Psych/Mental Status Mental status normal, Mood normal LAB Results Laboratory Tests 01/22 01/22 01/22 01/22 01/21 1203 0831 0613 0613 2020 Chemistry Plasma Sodium (136 - 145 mmol/L) 141 Plasma Potassium (3.5 - 5.1 mmol/L) 3.9 Plasma Chloride (98 - 107 mmol/L) 107 CO2 (Enzymatic) (21 - 32 mmol/L) 28 BUN (7 - 18 mg/dL) 7 Creatinine (0.6 - 1.3 mg/dL) 0.5 Est GFR ( Amer) (mL/min) >60 Est GFR (Non-Af Amer) (mL/min) >60 Glucose (70 - 110 mg/dL) 88 Plasma Calcium (8.5 - 10.1 mg/dL) 7.7 Iron (35 - 150 ug/dL) 178 TIBC (260 - 445 ug/dL) 427 Iron Saturation (15 - 50 %) 42 Ferritin (3 - 105 ng/mL) 59 Total Bilirubin (0.0 - 1.0 mg/dL) 0.9 AST (15 - 37 U/L) 49 ALT (12 - 78 U/L) 48.6 Alkaline Phosphatase (46 - 116 U/L) 88 Total Protein (6.4 - 8.2 g/dL) 5.5 Albumin (3.3 - 5.0 g/dL) 2.6 Vitamin B12 (211 - 946 pg/mL) 1305 Folate (>3.0 ng/mL) 7.7 Hematology WBC (4.5 - 11.5 K/uL) 8.7 Cancelled 7.8 RBC (4.00 - 5.20 M/uL) 3.06 Cancelled 2.94 Hgb (12.0 - 16.0 gm/dL) 7.5 Cancelled 7.3 7.3 Hct (36.0 - 46.0 %) 23.4 Cancelled 23.4 23.4 MCV (80 - 100 fL) 77 Cancelled 79 MCH (26 - 34 pg) 25 Cancelled 25 RDW (11.6 - 14.8 %) 24.2 Cancelled 24.5 Neut % (Auto) (50 - 75 %) 83 Cancelled 77 Lymph % (Auto) (25 - 40 %) 13 Cancelled 11 [place] % (Auto) (3 - 14 %) 1 Cancelled 2 Eos % (Auto) (0 - 4 %) 1 1 Baso % (Auto) (0 - 2 %) 0 2 Band Neutrophils % (0 - 8 %) 2 Cancelled 7 Metamyelocytes % (0 - 1 %) 0 0 Myelocytes (0 - 1 %) 0 0 Other Cell Type 0 0 Plt Count, EDTA (150 - 400 K/uL) 37 Cancelled 34 Polychromasia RARE RARE Hypochromic-Microcytic 1+ 2+ Poikilocytosis (manual 1+ Anisocytosis (manual) 3+ 3+ PUBS MCHC (31 - 37 g/dL) 32 Cancelled 31 01/21 Chemistry Vitamin B12 (211 - 946 pg/mL) 1454 Folate (>3.0 ng/mL) 4.5 Coagulation INR (0.8 - 1.2) 1.1 APTT (24 - 34 SECONDS) 34 Cancelled Hematology WBC (4.5 - 11.5 K/uL) 9.2 RBC (4.00 - 5.20 M/uL) 2.91 Hgb (12.0 - 16.0 gm/dL) 7.1 Hct (36.0 - 46.0 %) 22.2 MCV (80 - 100 fL) 77 MCH (26 - 34 pg) 24 RDW (11.6 - 14.8 %) 24.2 Neut % (Auto) (50 - 75 %) 67.2 Lymph % (Auto) (25 - 40 %) 22.7 [place] % (Auto) (3 - 14 %) 6.8 Eos % (Auto) (0 - 4 %) 2.2 Baso % (Auto) (0 - 2 %) 1.1 Reticulocyte % (Auto) (0.5 - 1.5 %) 1.0 Reticulocyte # (0.02 - 0.08 M/uL) 0.0286 Plt Count, EDTA (150 - 400 K/uL) 33 RBC Morphology (3919 A) 1+ HYPOCHROMASIA PUBS MCHC (31 - 37 g/dL) 32 Serology Hepatitis A IgM Ab Pending Hep Bs Antigen Pending Hep B Core IgM Ab Pending Hepatitis C Antibody Pending Assessment and Plan Problem List 1. Severe anemia Plan -Patient with findings of severe anemia. -Status post transfusion of 5 units packed RBCs -H&H stable -Discharge per [facility] [employer] OPERATOR with outpatient follow-up per their recommendations -Follow up with [facility] on Wednesday, January 25, 2017 -Repeat CBC at clinic visit -Follow up with hematology regarding thrombocytopenia -Recommend patient discharged on vitamin and ferrous sulfate 325 mg by mouth twice a day. 2. Thrombocytopenia Plan -Patient with thrombocytopenia -Platelet count stable at 37,000 -Follow up with hematology next week -Follow-up with primary care provider on Wednesday with repeat platelet count/CBC -Etiology of platelet count unclear-no new medical therapy, other illnesses. E&M Codes Rounding: Inpt-Moderate/[id number]
--- NOTE | 2017-01-22 16:56 | Provider's Discharge Care Plan ---
Problem, Goal, Plan Problem List 1. Severe anemia 2. Menorrhagia with regular cycle Goals: Improve disease control Instructions: Follow up as needed
--- NOTE | 2017-01-22 16:56 | Provider's Discharge Care Plan ---
Problem, Goal, Plan Problem List 1. Severe anemia 2. Menorrhagia with regular cycle Goals: Improve disease control Instructions: Follow up as needed
--- NOTE | 2017-01-25 06:42 | DISCHARGE SUMMARY ---
ADMIT DATE: 01/21/2017 DISCHARGE DATE: 01/22/2017 ADMITTING DIAGNOSES: 1. Acute medical emergency department diagnosis was vaginal hemorrhage. 2. Severe anemia. 3. Thrombocytopenia. 4. Menorrhagia with irregular cycles. 5. Other medical conditions: Previous cholecystitis. 6. Pancreatitis. 7. Thrombocytosis. 8. Perforated nasal septum. DISCHARGE DIAGNOSES: 1. Acute medical emergency department diagnosis was vaginal hemorrhage. 2. Severe anemia. 3. Thrombocytopenia. 4. Menorrhagia with irregular cycles. 5. Other medical conditions: Previous cholecystitis. 6. Pancreatitis. 7. Thrombocytosis. 8. Perforated nasal septum. HOSPITAL COURSE: Procedures performed: Transfusion of 5 units packed red blood cells. Consultation with pharmacy, Cheng Pendleton and hospitalist team. Medications given were Premarin IV 25 mg x2 over 24 hours p.o., medroxyprogesterone acetate and IV tranexamic acid 1 g IV. The patient came in with hemoglobin, hematocrit of 4.1 and 14.1, platelets of 65,000. Chem panel showed various abnormalities including the OT and PT were 2-8 times normal. The patient is admitted and transfused several units. She persisted in bleeding, Premarin was given x2, as well as progesterone and tranexamic acid. The patient improved from her hemorrhage situation and was finally discharged after 24 hours. DISCHARGE INSTRUCTIONS/MEDICATIONS: She did have an evaluation by the internal medicine hospitalist to give some insight to the patient. In his discharge notes he listed the followup visits with me, Yobani Alfaro MD, and to hematology oncology with people at the [facility], as well as primary care providers listed as needed. Followup visits with me while taking iron 325 mg b.i.d. and vitamins daily. Discussion with the patient over continued medical evaluation versus surgical procedures. The patient is 36 with 6 pregnancies and may desire additional. We will have these discussions again when she follows up in the clinic. The patient discharged with warnings, precautions.
== END 2017-01-22 17:30 | disposition home or self-care (01) | DRG 395 ==
LOC: ED SRH 16:45 → ACUTE2 SRH 18:22 → TRANS SRH 18:22 → ACUTE2 SRH 20:21
PROVIDERS: ADMIT Emergency Medicine
PROC: 30233N1 Transfusion of Nonautologous Red Blood Cells into Peripheral Vein, Percutaneous Approach (ICD-10-PCS; principal; 2017-01-20)
PROC: 30233N1 Transfusion of Nonautologous Red Blood Cells into Peripheral Vein, Percutaneous Approach (ICD-10-PCS; 2017-01-21)
PROC: 30233N1 Transfusion of Nonautologous Red Blood Cells into Peripheral Vein, Percutaneous Approach (ICD-10-PCS; 2017-01-21)
PROC: 30233N1 Transfusion of Nonautologous Red Blood Cells into Peripheral Vein, Percutaneous Approach (ICD-10-PCS; 2017-01-21)
PROC: 30233N1 Transfusion of Nonautologous Red Blood Cells into Peripheral Vein, Percutaneous Approach (ICD-10-PCS; 2017-01-21)
PROC: 30233N1 Transfusion of Nonautologous Red Blood Cells into Peripheral Vein, Percutaneous Approach (ICD-10-PCS; 2017-01-21)
PROC: 30233R1 Transfusion of Nonautologous Platelets into Peripheral Vein, Percutaneous Approach (ICD-10-PCS; 2017-01-22)
PROC: 30233R1 Transfusion of Nonautologous Platelets into Peripheral Vein, Percutaneous Approach (ICD-10-PCS; 2017-01-22)
PROC: 3E0234Z Introduction of Serum, Toxoid and Vaccine into Muscle, Percutaneous Approach (ICD-10-PCS; 2017-01-22)
DX: D50.0 Iron deficiency anemia secondary to blood loss (chronic) (principal); D69.6 Thrombocytopenia, unspecified; D68.4 Acquired coagulation factor deficiency; N92.4 Excessive bleeding in the premenopausal period; K76.9 Liver disease, unspecified; Z23 Encounter for immunization
CPT/HCPCS: 29230; 29247; 90001; 90074; 90100; 90155; 91004; 91162; 91163; 91282; 91295; 91504; 91505; 91544; 91643; 92668; 92670; 94001; 94060; 95059; 95061; 95130; 95140; 98428; 99787